=== PATIENT | male | born 1940 | race African-American/Black ===

== ENCOUNTER 2021-05-19 04:51 | Day surgery (SDC) | payer OTHER, BC ==
[2021-05-18 17:11] VITALS: BMI 27.6
[~2021-05-19 04:51] MED LIST: LIDOCAINE HCL 1%, 10 MG/ML (20ML VIAL) INF ONE
[2021-05-19] MEDS ORDERED: HEPARIN NA (PORCINE) 5,000 UNITS/ML 1ML VIAL ONE (13:55)
[2021-05-19] MEDS ORDERED: LIDOCAINE HCL 1%, 10 MG/ML (20ML VIAL) ONE (13:55)
[2021-05-19] MEDS ORDERED: ceFAZolin SODIUM 1 GM VIAL ONE (14:07)
[2021-05-19] MEDS ORDERED: MIDAZOLAM HCL 2 MG/2 ML SINGLE DOSE VIAL ONE (14:07)
[2021-05-19] MEDS ORDERED: DEXMEDETOMIDINE HCL 200 MCG/2 ML IVPB ONE (14:10)
[2021-05-19] MEDS ORDERED: ceFAZolin SODIUM 1 GM VIAL IVPB ONE (14:35)
[2021-05-19] MEDS ORDERED: LIDOCAINE HCL 1%, 10 MG/ML (20ML VIAL) INF ONE (14:39)
[2021-05-19] MEDS ORDERED: PROPOFOL 20 ML ONE (14:54)
[2021-05-19 18:19] VITALS: BP 126/55; PULSE 80; TEMP 98
== END 2021-05-19 18:10 | disposition home or self-care (01) ==
LOC: JASU-SURG 04:51
PROVIDERS: ATTEND Surgery Vascular Surgery
PROC: 047K3Z1 Dilation of Right Femoral Artery using Drug-Coated Balloon, Percutaneous Approach (ICD-10-PCS; principal; 2021-05-19 12:00)
DX: I70.235 Atherosclerosis of native arteries of right leg with ulceration of other part of foot (principal); L97.519 Non-pressure chronic ulcer of other part of right foot with unspecified severity
CPT/HCPCS: 37225; C2623; 76000-TC-FY; 94760; J1644